=== PATIENT | female | born 1990 | race Caucasian/White ===

== ENCOUNTER 2017-02-15 16:04 | Emergency (ER) | payer SELFPAY ==
[~2017-02-15] VITALS: Ht 165.1 cm; Wt 49.9 kg
[~2017-02-15 16:04] MED LIST: NKM
[2017-02-15 16:30] VITALS: BP 145/83
[2017-02-15] MEDS ORDERED: ZOFRAN4 M3 ORAL (17:52)
[2017-02-15 20:21] VITALS: BP 105/66
[2017-02-15 20:23] VITALS: BP 105/66
--- NOTE | 2017-02-16 16:31 | Emergency Room Report ---
History of Present Illness General Chief Complaint: Substance Abuse Source: EMS Present Illness HPI The pt is a 26 yo F BIBA for supposed heroin withdrawals. The pt states that she last used heroin 4 days prior and has been feeling total body pain which began today. Pain is described as a 10/10 dull ache with no known provoking or relieving factors. The pt states she has gone through heroin withdrawal in the past and this feels the same. THe pt denies other drug use or alcohol use. The pt does admit to nausea but denies vomiting and denies other symptoms including F, chills, dizziness, CP, SOB Allergies: Coded Allergies: HALOPERIDOL (Verified Allergy, Unknown, 02/15/17) Patient History Past Medical History: see triage record Pertinent Family History: none Reviewed Nursing Documentation: PMH: Agreed, PSxH: Agreed Nursing Documentation-PMH Past Medical History: No Stated History Review of Systems All Other Systems: negative except mentioned in HPI Physical Exam Vital Signs Date Time Temp Pulse Resp B/P Pulse Ox O2 Delivery O2 Flow Rate FiO2 02/15/17 15:57 88 16 145/83 97 Room Air 02/15/17 16:30 98.2 Sp02 EP Interpretation: reviewed, normal General Appearance: no apparent distress, alert, GCS 15, non-toxic Head: normocephalic, atraumatic Eyes: bilateral eye PERRL, bilateral eye normal inspection ENT: hearing grossly normal, normal pharynx, no angioedema, normal voice Neck: full range of motion, supple/symm/no masses Cardiovascular #1: regular rate, rhythm, no edema Gastrointestinal: normal bowel sounds, non tender, soft, non-distended, no guarding, no rebound Musculoskeletal: back normal, gait/station normal, normal range of motion, non- tender Neurologic: alert, oriented x3, responsive, sensory intact, normal gait Psychiatric: judgement/insight normal, memory normal, mood/affect normal, no suicidal/homicidal ideation Suicide Risk Assessment: Suicidal Ideation: No Had intent to initiate attempt: No Pt's plan for suicide attempt: No Has means to complete attempt: No Skin: normal color, no rash, warm/dry, well hydrated Lymphatic: no adenopathy Medical Decision Making PA Attestation Dr. Mack is my supervising physician. Patient management was discussed with my supervising physician Diagnostic Impression: Primary Impression: Heroin withdrawal ER Course The pt is a 26 yo F BIBA for supposed heroin withdrawal DDx: drug abuse, drug withdrawal, psychosis PE:The pt is hypertensive at 145/80. Otherwise vitals WNL. NAD. Resting on gurney. A&Ox3 HEENT unremarkable. PERRL. Sensory intact. normal gait. No tremors. Skin warm and dry UDS ordered but patient refuses to provide sample. Pt is given zofran and 0.1mg clonidine and is feeling better. The pt is given time to rest in the ED and will be DC'ed with information for drug abuse and resources for help. ER precautions given Last Vital Signs Date Time Temp Pulse Resp B/P Pulse Ox O2 Delivery O2 Flow Rate FiO2 02/15/17 20:23 98.2 72 18 105/66 97 Room Air Status: improved Disposition: HOME, SELF-CARE Condition: Improved Scripts Ondansetron* (ZOFRAN*) 4 Mg Tablet 4 MG ORAL Q6H Y for Nausea & Vomiting, #15 TAB Prov: ACACIA CUETO 02/15/17 Referrals: NOT CHOSEN IPA/MD,REFERRING (PCP) Patient Instructions: Opioid Withdrawal Additional Instructions: I discussed my findings with the patient. All questions and concerns have been answered. Treatment and medication compliance have been addressed. I advised the patient that they need to follow up with PMD in 3-5 days. Return to ED if symptoms worsen, new symptoms arise, or if needed for any reason. Patient verbalized understanding of discharge instructions ACACIA CUETO Feb 16, 2017 16:31
== END 2017-02-15 20:24 | disposition home or self-care (01) ==
LOC: EDBD 16:04 → EMR 17:51
DX: F11.23 Opioid dependence with withdrawal (principal); Z88.8 Allergy status to other drugs, medicaments and biological substances
CPT/HCPCS: 99283